=== PATIENT | male | born 1965 | race Caucasian/White ===

== ENCOUNTER → 2018-09-29 | Outpatient (CLI) | payer OTHER ==
--- NOTE | 2018-09-29 16:45 | XCELERA REPORT ---
[address] [place] [facility] [address] Lower Extremity Venous Evaluation Procedure: Color flow and duplex imaging of the veins of the right lower extremity as well as the left Common Femoral vein. Right Sided Venous Evaluation Normal vessel filling wall to wall, compression and augmentation as well as Colour flow down to the infrageniculate veins. Left Sided Venous Evaluation The left common femoral vein is fully compressible. Spontaneous and phasic flow is present in the left common femoral vein. Interpretation Summary No duplex evidence of DVT or obstruction in the right lower extremity nor in the left Common Femoral vein. Name: ROSETTA MCKENNA Cuauht[place]oc Age: 53 yrs Gender: Male : 1965 Patient Status: Outpatient Patient Location: [facility] Study Date: 09/29/2018 02:57 PM Reason For Study: RLE PAIN Ordering Physician: KENY WAITE Performed By: Madeline Cruz : KENY WAITE > Yoel Steen
== END ==
LOC: SP 14:10
PROVIDERS: ATTEND Orthopaedic Surgery Sports Medicine
DX: M79.661 Pain in right lower leg (principal)
CPT/HCPCS: 93971